=== PATIENT | male | born 1970 | race Two or more races ===

== ENCOUNTER 2021-04-10 02:13 | Emergency (ER) | payer SELFPAY ==
[~2021-04-10] VITALS: Ht 172.7 cm; Wt 80.4 kg
[~2021-04-10 02:13] MED LIST: AMOX1TAB11 PO; DOXY100C3 PO; FERR325T72 PO; METH4TAB2 PO; OXYC1TAB15 PO; PANT40TA77 PO
[2021-04-10] MEDS ORDERED: ONDANSETRON PF 4 MG/2 ML VIAL. IVP ONE (08:15)
[2021-04-10] MEDS ORDERED: IV NORMAL SALINE 1000ML BAG 1,000 ML IV ONE (08:15)
[2021-04-10] MEDS ORDERED: KETOROLAC 30 MG/ML VIAL. IVP ONE (08:15)
[2021-04-10 08:33] LABS: BASO % 0 % (0-3); EOS % 0 % (0-3); HEMATOCRIT 27.8 % (39.0-53.0); HEMOGLOBIN 8.2 g/dL (13.0-17.5); LYMPH # 1.3 x10^3/uL (1.0-4.8); LYMPH % 8 % (24-48); MEAN CORPUSCULAR HEMOGLOBIN 18 pg (25-35); MEAN CORPUSCULAR HGB CONC 29 g/dL (31-37); MEAN CORPUSCULAR VOLUME 60 fL (79-100); MONO # 1.2 x10^3/uL (0.0-1.1); MONO % 7 % (0-9); NEUT # 14.7 x10^3/uL (1.8-7.7); NEUT % 85 % (31-73); PLATELET COUNT 402 x10^3/uL (140-400); RED BLOOD COUNT 4.61 x10^6/uL (4.30-5.70); RED CELL DISTRIBUTION WIDTH 17.8 % (11.5-14.5); WHITE BLOOD COUNT 17.2 x10^3/uL (4.0-11.0)
[2021-04-10 08:35] LABS: BILIRUBIN,URINE NEGATIVE (NEG); COLOR,URINE YELLOW; NITRITE,URINE NEGATIVE (NEG); PH,URINE 6.5 (<5.0-8.0); PROTEIN,URINE NEGATIVE (NEG-TRACE); UROBILINOGEN,URINE 0.2 mg/dL (0.2 mg/dL)
[2021-04-10 08:49] LABS: CALCIUM 10.5 mg/dL (8.5-10.1); CREATININE 1.1 mg/dL (0.7-1.3); GFR 70.3; POTASSIUM 3.9 mmol/L (3.5-5.1)
[2021-04-10 08:53] LABS: AMORPHOUS SEDIMENT,UR PRESENT /HPF; CLARITY,URINE HAZY
[2021-04-10 08:54] LABS: BACTERIA,URINE 0 /HPF (0-FEW); WBC,URINE OCC /HPF (0-4)
[2021-04-10 08:54] LABS: ALBUMIN 3.6 g/dL (3.4-5.0); MAGNESIUM 1.9 mg/dL (1.8-2.4); TOTAL BILIRUBIN 0.4 mg/dL (0.2-1.0); TOTAL PROTEIN 7.1 g/dL (6.4-8.2)
[2021-04-10 09:01] LABS: % BANDS 1 % (0-9); % LYMPHS 12 % (24-48); % MONOS 4 % (0-10); % SEGS 83 % (35-66); PLT ESTIMATE ADEQUATE (ADEQUATE)
[2021-04-10 09:02] LABS: ANISOCYTOSIS SLIGHT
--- NOTE | 2021-04-10 09:02 | RAD ---
CT abdomen pelvis without contrast dated 04/10/2021. COMPARISON: 09/26/2019. CLINICAL INDICATION: Right flank pain. TECHNIQUE: Contiguous axial imaging of the abdomen pelvis performed without the administration of IV or oral con trast. One or more of the following individualized dose reduction techniques were utilized for this examinat ion: 1. Automated exposure control 2. Adjustment of the mA and/or kV according to patient size 3. Use of iterative reconstruction technique. FINDINGS: There is a 5 mm calcific stone at the right UVJ with mild proximal dilation the right ureter and righ t pelvicalyceal system. Mild inflammatory stranding in the perinephric and periureteral fat. There is a 6 mm calcific stone at the lower pole right kidney. Cluster of small calcifications within an uppe r pole calyx on the left with additional smaller stones at the lower pole left kidney. No left ureter al stone or left hydronephrosis. Solid abdominal viscera not well evaluated in the absence of contrast material. No apparent attenuati on abnormality of the liver or spleen. Gallbladder surgically absent. Pancreas is somewhat atrophic. Adrenal glands unremarkable. Unopacified GI tract normal in caliber and contour. No bowel wall thickening. No inflammatory strandi ng in the mesentery. The appendix is normal in caliber. No ascites or lymphadenopathy. Abdominal aort a normal in caliber. Images of pelvis show nondistended urinary bladder. Mild diffuse bladder wall thickening. Prostate gl and normal in size. No free fluid. No pelvic adenopathy. There is a prominent extratesticular cystic focus at the right scrotum that measures about 2.4 cm, li mila epididymal head cyst or spermatocele. Bone window show no acute findings. Mild multilevel spondylosis. Limited images of lung bases show moderate size hiatal hernia. Linear bands of increased density in t he lower lobes, likely scar or atelectasis. IMPRESSION: 1. There is a 5 mm calcific stone at the right UVJ with mild obstructive uropathy. 2. Bilateral nephrolithiasis. 3. Status post cholecystectomy. 4. Normal appendix. 5. Mild diffuse bladder wall thickening, nonspecific. Consider acute or chronic cystitis. 6. Hiatal hernia. Electronically signed by: Wallace Tang MD (04/10/2021 9:00 AM) [id number]
[2021-04-10 09:03] LABS: OVALOCYTES FEW; POIKILOCYTOSIS SLIGHT; POLYCHROMASIA OCCASIONAL; TEAR DROP CELLS OCC
[2021-04-10 09:04] LABS: BIZZARE CELLS OCC
[2021-04-10] MEDS ORDERED: cefTRIAXone IV Push 1 GM VIAL. IVP ONE (10:30)
[2021-04-10] MEDS ORDERED: MORPHINE SULFATE 2 MG/ML INJ. IVP ONE (10:30)
[2021-04-10] MEDS ORDERED: IBUP-1060 PO (10:58)
[2021-04-10] MEDS ORDERED: OXYC1TAB15 PO (10:58)
[2021-04-10] MEDS ORDERED: TAMS0.4C97 PO (10:58)
--- NOTE | 2021-04-10 11:00 | PHYS DOC ---
Past Medical History Past Medical History: Kidney Stone, Other Additional Past Medical Histor: KIDNEY STONES. Past Surgical History: Cholecystectomy Smoking Status: Never Smoker Alcohol Use: Rarely Drug Use: None General Adult EDM: Chief Complaint: RIGHT SIDE FLANK PAIN HPI: HPI: Patient is a 50 year old male who was presented here due to right flank pain started earlier this morning. Patient has history of kidney stone. Patient said the pain is sharp and stabbing nature, radiated to the right groin area. Patient said he was recently admitted here due to COVID-19 infection, patient was discharged home with steroid and doxycycline. Patient denies any chest pain. Review of Systems: Review of Systems: Constitutional: Denies fever or chills. [] Eyes: Denies change in visual acuity. [] HENT: Denies nasal congestion or sore throat. [] Respiratory: Positive for cough, no trouble breathing Cardiovascular: Denies chest pain or edema. [] GI: Positive for right side abdominal pain with nausea vomiting, no diarrhea : Denies dysuria. [] Musculoskeletal: Denies back pain or joint pain. [] Integument: Denies rash. [] Neurologic: Denies headache, focal weakness or sensory changes. [] Endocrine: Denies polyuria or polydipsia. [] Lymphatic: Denies swollen glands. [] Psychiatric: Denies depression or anxiety. [] Heart Score: C/O Chest Pain: N/A Risk Factors: Risk Factors: DM, Current or recent (<one month) smoker, HTN, HLP, family history of CAD, obesity. Risk Scores: Score 0 - 3: 2.5% MACE over next 6 weeks - Discharge Home Score 4 - 6: 20.3% MACE over next 6 weeks - Admit for Clinical Observation Score 7 - 10: 72.7% MACE over next 6 weeks - Early Invasive Strategies Current Medications: Current Medications Medications (Trade) Dose Ordered Sig/Vivien Start Time Stop Time Status Last Admin Dose Admin Ceftriaxone Sodium (Rocephin) 1 gm 1X ONCE 04/10/21 10:30 04/10/21 10:31 DC Ketorolac Tromethamine (Toradol 30mg Vial) 30 mg 1X ONCE 04/10/21 08:15 04/10/21 08:18 DC 04/10/21 08:33 30 MG Morphine Sulfate (Morphine Sulfate) 2 mg 1X ONCE 04/10/21 10:30 04/10/21 10:31 DC Ondansetron HCl (Zofran) 4 mg 1X ONCE 04/10/21 08:15 04/10/21 08:18 DC 04/10/21 08:34 4 MG Sodium Chloride 1,000 ml @ 1,000 mls/hr 1X ONCE 04/10/21 08:15 04/10/21 09:14 DC 04/10/21 08:34 1,000 MLS/HR Allergies: Allergies: Allergies Coded Allergies Type Severity Reaction Last Updated Verified No Known Drug Allergies 09/26/19 No Physical Exam: PE: Constitutional: Well developed, well nourished, no acute distress, non-toxic appearance. [] HENT: Normocephalic, atraumatic, bilateral external ears normal, oropharynx moist, no oral exudates, nose normal. [] Eyes: PERRLA, EOMI, conjunctiva normal, no discharge. [] Neck: Normal range of motion, no tenderness, supple, no stridor. [] Cardiovascular:Heart rate regular rhythm, no murmur [] Lungs & Thorax: Bilateral breath sounds clear to auscultation [ Abdomen: Bowel sounds normal, soft, right side lower quadrant tenderness to palpation, no rebound. Skin: Warm, dry, no erythema, no rash. [] Back: No tenderness, right CVA tenderness to palpation Extremities: No tenderness, no cyanosis, no clubbing, ROM intact, no edema. [] Neurologic: Alert and oriented X 3, normal motor function, normal sensory function, no focal deficits noted. [] Psychologic: Affect normal, judgement normal, mood normal. [] Current Patient Data: Labs: Laboratory Tests Test 04/10/21 08:17 04/10/21 08:20 White Blood Count 17.2 x10^3/uL (4.0-11.0) H Red Blood Count 4.61 x10^6/uL (4.30-5.70) Hemoglobin 8.2 g/dL (13.0-17.5) L Hematocrit 27.8 % (39.0-53.0) L Mean Corpuscular Volume 60 fL (79-100) L Mean Corpuscular Hemoglobin 18 pg (25-35) L Mean Corpuscular Hemoglobin Concent 29 g/dL (31-37) L Red Cell Distribution Width 17.8 % (11.5-14.5) H Platelet Count 402 x10^3/uL (140-400) H Neutrophils (%) (Auto) 85 % (31-73) H Lymphocytes (%) (Auto) 8 % (24-48) L Monocytes (%) (Auto) 7 % (0-9) Eosinophils (%) (Auto) 0 % (0-3) Basophils (%) (Auto) 0 % (0-3) Neutrophils # (Auto) 14.7 x10^3/uL (1.8-7.7) H Lymphocytes # (Auto) 1.3 x10^3/uL (1.0-4.8) Monocytes # (Auto) 1.2 x10^3/uL (0.0-1.1) H Eosinophils # (Auto) 0.0 x10^3/uL (0.0-0.7) Basophils # (Auto) 0.0 x10^3/uL (0.0-0.2) Segmented Neutrophils % 83 % (35-66) H Band Neutrophils % 1 % (0-9) Lymphocytes % 12 % (24-48) L Monocytes % 4 % (0-10) Platelet Estimate Adequate (ADEQUATE) Polychromasia Occasional Poikilocytosis Slight Anisocytosis Slight Tear Drop Cells Occ Ovalocytes Few RBC Morphology Bizarre Forms Occ Sodium Level 141 mmol/L (136-145) Potassium Level 3.9 mmol/L (3.5-5.1) Chloride Level 105 mmol/L (98-107) Carbon Dioxide Level 22 mmol/L (21-32) Anion Gap 14 (6-14) Blood Urea Nitrogen 24 mg/dL (8-26) Creatinine 1.1 mg/dL (0.7-1.3) Estimated GFR (Cockcroft-Gault) 70.3 BUN/Creatinine Ratio 22 (6-20) H Glucose Level 117 mg/dL (70-99) H Calcium Level 10.5 mg/dL (8.5-10.1) H Magnesium Level 1.9 mg/dL (1.8-2.4) Total Bilirubin 0.4 mg/dL (0.2-1.0) Aspartate Amino Transferase (AST) 15 U/L (15-37) Alanine Aminotransferase (ALT) 32 U/L (16-63) Alkaline Phosphatase 98 U/L (46-116) Total Protein 7.1 g/dL (6.4-8.2) Albumin 3.6 g/dL (3.4-5.0) Albumin/Globulin Ratio 1.0 (1.0-1.7) Lipase 77 U/L (73-393) Urine Collection Type Unknown Urine Color Yellow Urine Clarity Hazy Urine pH 6.5 (<5.0-8.0) Urine Specific [place] 1.015 (1.000-1.030) Urine Protein Negative mg/dL (NEG-TRACE) Urine Glucose (UA) Negative mg/dL (NEG) Urine Ketones (Stick) Negative mg/dL (NEG) Urine Blood Large (NEG) Urine Nitrite Negative (NEG) Urine Bilirubin Negative (NEG) Urine Urobilinogen Dipstick 0.2 mg/dL (0.2 mg/dL) Urine Leukocyte Esterase Negative (NEG) Urine RBC 11-20 /HPF (0-2) Urine WBC Occ /HPF (0-4) Urine Amorphous Sediment Present /HPF Urine Bacteria 0 /HPF (0-FEW) Laboratory Tests 04/10/21 08:17 Laboratory Tests 04/10/21 08:17 Vital Signs: Vital Signs Date Time Temp Pulse Resp B/P (MAP) Pulse Ox O2 Delivery O2 Flow Rate FiO2 04/10/21 08:31 98.2 55 15 142/77 (98) 100 Room Air 98.2 EKG: EKG: [] Radiology/Procedures: Radiology/Procedures: [facility] [address] [place] [address] IMAGING REPORT Signed PATIENT: DANY GUZMAN AACCOUNT: [id number] : 1970 LOCATION: ER AGE: 50 SEX: M EXAM STATUS: REG ER ORD. PHYSICIAN: TIA FERGUSON DO REASON: right side flank pain, hx of kidney stone PROCEDURE: CT ABDOMEN PELVIS WO CONTRAST CT abdomen pelvis without contrast dated 04/10/2021. COMPARISON: 09/26/2019. CLINICAL INDICATION: Right flank pain. TECHNIQUE: Contiguous axial imaging of the abdomen pelvis performed without the administration of IV or oral contrast. One or more of the following individualized dose reduction techniques were utilized for this examination: 1. Automated exposure control 2. Adjustment of the mA and/or kV according to patient size 3. Use of iterative reconstruction technique. FINDINGS: There is a 5 mm calcific stone at the right UVJ with mild proximal dilation the right ureter and right pelvicalyceal system. Mild inflammatory stranding in the perinephric and periureteral fat. There is a 6 mm calcific stone at the lower pole right kidney. Cluster of small calcifications within an upper pole calyx on the left with additional smaller stones at the lower pole left kidney. No left ureteral stone or left hydronephrosis. Solid abdominal viscera not well evaluated in the absence of contrast material. No apparent attenuation abnormality of the liver or spleen. Gallbladder surgically absent. Pancreas is somewhat atrophic. Adrenal glands unremarkable. Unopacified GI tract normal in caliber and contour. No bowel wall thickening. No inflammatory stranding in the mesentery. The appendix is normal in caliber. No ascites or lymphadenopathy. Abdominal aorta normal in caliber. Images of pelvis show nondistended urinary bladder. Mild diffuse bladder wall thickening. Prostate gland normal in size. No free fluid. No pelvic adenopathy. There is a prominent extratesticular cystic focus at the right scrotum that measures about 2.4 cm, likely epididymal head cyst or spermatocele. Bone window show no acute findings. Mild multilevel spondylosis. Limited images of lung bases show moderate size hiatal hernia. Linear bands of increased density in the lower lobes, likely scar or atelectasis. IMPRESSION: 1. There is a 5 mm calcific stone at the right UVJ with mild obstructive uropathy. 2. Bilateral nephrolithiasis. 3. Status post cholecystectomy. 4. Normal appendix. 5. Mild diffuse bladder wall thickening, nonspecific. Consider acute or chronic cystitis. 6. Hiatal hernia. Electronically signed by: Wallace Tang MD (04/10/2021 9:00 AM) [id number] DICTATED and SIGNED BY: WALLACE TANG MD DATE: 04/10/21 [id number] Course & Med Decision Making: Course & Med Decision Making Pertinent Labs and Imaging studies reviewed. (See chart for details) Patient is a 50-year-old male who present to ER for evaluation right side flank pain. Patient was found to have kidney stone, which he has history of kidney stone. Patient was given pain medication in ER, he feel much better. Patient will BE dischargeD home, he will need to follow-up with urology outpatient. Beryr Disclaimer: Berry Disclaimer: This electronic medical record was generated, in whole or in part, using a voice recognition dictation system. Departure Departure Impression: Primary Impression: Kidney stone Disposition: HOME / SELF CARE / HOMELESS Condition: IMPROVED Referrals: NO PCP (PCP) JOHN MATA MD Please call this Urologist for follow up next week. Patient Instructions: Kidney Stones Additional Instructions: Thank you for visiting our Emergency Department. We appreciate you trusting us with your care. If any additional problems come up don't hesitate to return to visit us. Please follow up with your primary care provider so they can plan additional care if needed and know about the problem that you had. If symptoms worsen come back to the Emergency Department. Any concerning symptoms that start such as chest pain, shortness of air, weakness or numbness on one side of the body, running high fevers or any other concerning symptoms return to the ER. Scripts Ibuprofen (IBUPROFEN) 800 Mg Tablet 800 MG PO PRN Q6HRS PRN for PAIN, #30 TAB Prov: TIA FERGUSON DO 04/10/21 Oxycodone/Apap 5-325 (PERCOCET 5-325 MG TABLET ) 1 Each Tablet 1 TAB PO PRN QID PRN for SEVERE PAIN 7-10 MDD 4 Tablet(s) for 5 Days, #15 TAB 0 Refills Prov: TIA FERGUSON DO 04/10/21 Tamsulosin Hcl (FLOMAX) 0.4 Mg Cap.er.24h 1 CAP PO DAILY for 10 Days, #10 CAP 11 Refills Prov: TIA FERGUSON DO 04/10/21 TIA FERGUSON DO Apr 10, 2021 11:00
[2021-04-10 11:16] VITALS: BP 124/75
== END 2021-04-10 11:35 | disposition home or self-care (01) ==
LOC: ER 02:13
DX: N20.0 Calculus of kidney (principal); Z87.442 Personal history of urinary calculi; Z90.49 Acquired absence of other specified parts of digestive tract
CPT/HCPCS: 36415; 74176; 80053; 81001; 83690; 83735; 85007; 85025; 96361; 96374; 96375; 99285; J0696; J1885; J2270; J2405; J7030; 96376

== ENCOUNTER → 2021-05-20 | Day surgery (SDC) | payer SELFPAY ==
[~2021-05-20] VITALS: Ht 170.2 cm; Wt 72.0 kg
[~2021-05-20] MED LIST changes: +IBUP-1060 PO; +IV RINGERS,LACTATED 1000ML 1,000 ML IV SCH; +LIDOCAINE 2% PF 5 ML VIAL. ONE; +PROPOFOL 10 MG/ML (20ML) VIAL. IV ONE; +TAMS0.4C97 PO
[2021-05-20 12:25] VITALS: BP 155/91
--- NOTE | 2021-05-20 13:06 | PDOC1 ---
History and Physical Date of Admission Date of Admission DATE: 05/20/21 TIME: 12:57 Identification/Chief Complaint Chief Complaint Iron deficiency anemia. Source Source: Chart review, Patient History of Present Illness History of Present Illness 50 y/o male with PAULINA. Seen here for this when in for COVID last month. No overt bleeding. No symptoms. Prior miya for stones. No PUD, liver, pancreatic history. No prior 'scopes. Past Medical History Endocrine: Diabetes Past Surgical History Past Surgical History: Cholecystectomy Family History Family History: High Cholestrol, Hypertension Social History Smoke: No ALCOHOL: none Drugs: None Current Medications Current Medications Current Medications Ringer's Solution 1,000 ml @ 50 mls/hr Q20H IV Last administered on 05/20/21at 12:29; Start 05/20/21 at 07:00; Stop 05/20/21 at 18:59 Propofol (Diprivan) 200 mg STK-MED ONCE IV ; Start 05/20/21 at 12:52; Stop 05/20/21 at 12:52; Status DC Lidocaine HCl (Lidocaine Pf 2% Vial) 5 ml STK-MED ONCE .ROUTE ; Start 05/20/21 at 12:52; Stop 05/20/21 at 12:53; Status DC Active Scripts Active Ibuprofen 800 Mg Tablet 800 Mg PO PRN Q6HRS PRN Percocet 5-325 Mg Tablet (Oxycodone/Acetaminophen) 1 Each Tablet 1 Tab PO PRN QID PRN MDD 4 Tablet(s) 5 Days Flomax (Tamsulosin Hcl) 0.4 Mg Cap.er.24h 1 Cap PO DAILY 10 Days Doxycycline Hyclate 100 Mg Capsule 1 Cap PO BID Medrol (Methylprednisolone) 4 Mg Tab.ds.pk 1 Pkg PO UD Pantoprazole Sodium (Pantoprazole Sodium) 40 Mg Tablet.dr 40 Mg PO DAILYAC 90 Days Feosol (Ferrous Sulfate) 325 Mg Tablet 325 Mg PO BIDWMEALS 30 Days Percocet 5-325 Mg Tablet (Oxycodone/Acetaminophen) 1 Each Tablet 1 Tab PO PRN Q4HRS PRN 6 Days Amox Tr-K Clv 875-125 Mg Tab (Amoxicillin/Potassium Clav) 1 Each Tablet 1 Tab PO BID 5 Days Allergies Allergies: Coded Allergies: No Known Drug Allergies (Unverified , 05/20/21) ROS Review of System Otherwise negative. Physical Exam General: Alert, Oriented X3, Cooperative, No acute distress HEENT: PERRLA, EOMI Lungs: Clear to auscultation Heart: S1S2, RRR, no gallops, no murmurs Abdomen: Normal bowel sounds, Soft, No tenderness, No hepatosplenomegaly, No masses Rectal Exam: deferred (to time of procedure) Extremities: No cyanosis, No edema Skin: No significant lesion Neuro: Normal speech, Strength at 5/5 X4 ext, Normal tone, Sensation intact, Cranial nerves 3-12 NL, Reflexes 2+ Psych/Mental Status: Mental status NL, Mood NL Vitals Vitals Vital Signs Date Time Temp Pulse Resp B/P (MAP) Pulse Ox O2 Delivery O2 Flow Rate FiO2 05/20/21 12:25 98.0 88 20 97 98.0 VTE Prophylaxis Ordered VTE Prophylaxis Devices: No VTE Pharmacological Prophylaxi: No Assessment/Plan Assessment/Plan IMP: Iron deficiency, cause unclear. PLAN: colonoscopy/EGD. TYRONE SINGH MD May 20, 2021 13:06
[2021-05-20 13:56] VITALS: BP 118/63
--- NOTE | 2021-05-20 14:11 | PDOC4 ---
PROCEDURE Procedure EGD/colonoscopy Indication: PAULINA Meds: per anesthesia Findings: E--normal G--Medium HH--antral biopsies. D--Normal to 3rd portion. Biopsied second. TOMEKA-normal --'Scope advanced to TI. Prep good. Mucosa and TI normal. 3mm polyp, upper rectum, biopsied off. Otherwise normal. Juan. well. Imp: HH Rectal polyp. Rec: Await path. Resume meds, diet. F/u in 2 weeks. TYRONE SINGH MD May 20, 2021 14:11
--- NOTE | 2021-05-21 15:26 | PATHOLOGY ---
[facility] Accession Number: [id number] . 01 Material submitted: . PART A: duodenum - 2ND PORTION DUODENUM BIOPSY PART B: stomach - ANTRUM BIOPSY PART C: rectum - RECTAL POLYP . 01 Clinical history: . ANEMIA/SCREENING EGD/COLONOSCOPY . 02 Diagnosis: A. Duodenal biopsy, second portion of duodenum: - No diagnostic abnormalities. . B. Gastric biopsies, antrum: - Active chronic gastritis, mild to moderate, with Helicobacter organisms identified. . C. Colorectal biopsy, rectal polyp: - Tubular adenoma. . (JPM:kevan; 05/21/2021) [facility] 05/21/2021 1218 Local . 02 Comment: Sections of the second portion of duodenum biopsy reveal duodenal mucosa containing a single mucosal lymphoid aggregate. Where best oriented, the mucosal villi show no sprue-like changes or significant inflammatory changes. . Sections of the gastric antral biopsy show congestion and focally active, mild to moderate chronic inflammation. A properly controlled immunoperoxidase stain for Helicobacter reveals the presence of Helicobacter organisms. . Sections of the rectal polyp biopsy reveal a tubular adenoma showing no high-grade dysplasia or evidence of malignancy. . (JPM:kevan; 05/21/2021) . . . Special stain performed: Immunoperoxidase stain for Helicobacter on B1 . 02 Electronically signed: . Kevin Chacko MD, Pathologist NPI- [id number] . 01 Gross description: . A. The specimen is received in formalin, labeled "surinderrastaRaphael palmer, 2nd portion of duodenum" and consists of 2 mcgregor irregular tissues aggregating 0.4 x 0.4 x 0.1 cm which are submitted in toto in A1. . B. The specimen is received in formalin, labeled "Raphael todd, antrum BX" and consists of 2 mcgregor irregular tissues aggregating 0.7 x 0.3 x 0.1 cm which are submitted in toto in B1. . C. The specimen is received in formalin, labeled "Raphael Solo, rectal polyp" and consists of a mcgregor irregular tissue measuring 0.4 x 0.3 x 0.2 cm which is submitted in toto in C1. ([place]; 05/20/2021) DKA/DKA 05/20/2021 [facility]9 Local . 02 Pathologist provided ICD-10: K29.50, B96.81, D12.8 . 02 CPT . 576348, 953903, [id number], [id number] Specimen Comment: A courtesy copy of this report has been sent to [phone] Specimen Comment: Report sent to Performed at: 01 [facility] [address], [place] [id number] MD Ganesh Valerio MD Phone: [phone] Performed at: 02 [facility] [address] [place], [place] [id number] MD Kevin Chacko MD Phone: [phone]
== END | disposition home or self-care (01) ==
LOC: ENDOS 11:53
PROVIDERS: ATTEND Internal Medicine Gastroenterology
DX: D50.9 Iron deficiency anemia, unspecified (principal); K29.50 Unspecified chronic gastritis without bleeding; D12.8 Benign neoplasm of rectum; B96.81 Helicobacter pylori [H. pylori] as the cause of diseases classified elsewhere; K44.9 Diaphragmatic hernia without obstruction or gangrene; K31.89 Other diseases of stomach and duodenum; K63.89 Other specified diseases of intestine; E11.9 Type 2 diabetes mellitus without complications; Z90.49 Acquired absence of other specified parts of digestive tract; Z98.890 Other specified postprocedural states; Z79.899 Other long term (current) drug therapy; Z72.89 Other problems related to lifestyle; Z82.49 Family history of ischemic heart disease and other diseases of the circulatory system
CPT/HCPCS: 43239; 45380; 88305; 88342; J2704; 45384

== ENCOUNTER 2021-06-28 19:01 | Inpatient (IN) | payer SELFPAY ==
[~2021-06-28] VITALS: Ht 167.6 cm; Wt 180.7 kg
[~2021-06-28 19:01] MED LIST changes: -IV RINGERS,LACTATED 1000ML 1,000 ML IV SCH; -LIDOCAINE 2% PF 5 ML VIAL. ONE; -PROPOFOL 10 MG/ML (20ML) VIAL. IV ONE
--- NOTE | 2021-06-28 22:08 | PHYS DOC ---
Past Medical History Past Medical History: Kidney Stone, Other Additional Past Medical Histor: KIDNEY STONES. Past Surgical History: Cholecystectomy Smoking Status: Never Smoker Alcohol Use: Rarely Drug Use: None General Adult EDM: Chief Complaint: OTHER COMPLAINTS HPI: HPI: Patient is a 50-year-old male who presents to the emergency department for lower abdominal/suprapubic pain with testicular pain that started yesterday. Patient rates his pain 10 out of 10. No treatment prior to arrival. Patient denies any swelling or redness to his testicles, dysuria,fevers, nausea, vomiting, diarrhea, hematuria, blood in stools. Review of Systems: Review of Systems: Constitutional: See HPI GI: See HPI : See HPI Heart Score: C/O Chest Pain: N/A Risk Factors: Risk Factors: DM, Current or recent (<one month) smoker, HTN, HLP, family history of CAD, obesity. Risk Scores: Score 0 - 3: 2.5% MACE over next 6 weeks - Discharge Home Score 4 - 6: 20.3% MACE over next 6 weeks - Admit for Clinical Observation Score 7 - 10: 72.7% MACE over next 6 weeks - Early Invasive Strategies Current Medications: Current Medications Medications (Trade) Dose Ordered Sig/Vivien Start Time Stop Time Status Last Admin Dose Admin Fentanyl Citrate (Fentanyl 2ml Vial) 50 mcg 1X ONCE 06/28/21 22:00 06/28/21 22:01 UNV Sodium Chloride 1,000 ml @ 1,000 mls/hr Q1H 06/28/21 22:00 06/28/21 22:59 UNV Allergies: Allergies: Allergies Coded Allergies Type Severity Reaction Last Updated Verified No Known Drug Allergies 05/20/21 No Physical Exam: PE: Constitutional: Well developed, well nourished, no acute distress, non-toxic appearance. [] HENT: Normocephalic, atraumatic, bilateral external ears normal, oropharynx moist, no oral exudates, nose normal. [] Eyes: PERRL, EOMI, conjunctiva normal, no discharge. [] Neck: Normal range of motion, no tenderness, supple, no stridor. [] Cardiovascular:Heart rate regular rhythm, no murmur [] Lungs & Thorax: Bilateral breath sounds clear to auscultation [] Abdomen: Bowel sounds normal, soft, suprapubic tenderness with palpation and right lower quadrant tenderness with palpation, no rebound tenderness, no abdominal guarding or rigidity, no swelling/warmth/redness noted to testicles, no high riding testicle, negative prehns sign, no masses, no pulsatile masses. [] Skin: Warm, dry, no erythema, no rash. [] Back: no tenderness, normal ROM Extremities: No tenderness, no cyanosis, no clubbing, ROM intact, no edema. [] Neurologic: Alert and oriented X 3, normal motor function, normal sensory fu nction, no focal deficits noted. [] Psychologic: Affect normal, judgement normal, mood normal. [] EKG: EKG: [] Radiology/Procedures: Radiology/Procedures: []REASON: lower abdominal pain, OMNI 300 60 ML IV PROCEDURE: CT ABD PELV W/ IV CONTRST ONLY CT ABDOMEN+PELVIS W History: Lower abdominal pain. Comparison: CT abdomen and pelvis 04/10/2021 Technique: CT abdomen and pelvis with intravenous contrast. Findings: There is a distal left ureterolith measuring 9 mm causing mild left hydronephrosis and hydroureter. Distally the left ureter is decompressed. Mild periureteral fat stranding. There are a few benign left renal cysts. The right kidney is unremarkable. The bladder and prostate are within normal limits. The liver is unremarkable. Status post cholecystectomy. The pancreas, spleen and adrenal glands are normal. There is a moderate hiatal hernia. The small bowel is within normal limits. Mild descending diverticulosis. No pericolonic inflammatory changes. No intra- abdominal free air or free fluid. Mild aortic atherosclerotic calcification. Soft tissues are unremarkable. No acute osseous abnormality. Impression: 1. Distal left ureterolith measuring 9 mm causing mild left hydronephrosis and hydroureter with periureteral inflammatory changes. 2. Moderate hiatal hernia. 3. Mild diverticulosis. No evidence of diverticulitis. ------ Exposure: One or more of the following individualized dose reduction techniques were utilized for this examination: 1. Automated exposure control 2. Adjustment of the mA and/or kV according to patient size 3. Use of iterative reconstruction technique. Electronically signed by: You Colon MD (06/29/2021 12:34 AM) [facility] DICTATED and SIGNED BY: YOU COLON MD DATE: 06/29/2126 Course & Med Decision Making: Course & Med Decision Making Pertinent Labs and Imaging studies reviewed. (See chart for details) Patient resents to the emergency department for lower abdominal pain and testicular pain that started yesterday. Work-up in the emergency department consisted of blood work, urinalysis. Patient was tender in his suprapubic and right lower quadrant therefore CT imaging was performed of his abdomen and pelvis. Patient treated with IV fluids and pain medication. Patient CBC, lipase and CMP are mostly unremarkable, his creatinine was elevated at 1.4. CT scan of his abdomen and pelvis shows a 9 mm stone in the distal left ureter causing hydronephrosis and hydroureter with perinephric stranding. Urinalysis is pending on patient currently. No PCP, concerned for follow up.Patients pain still a 7/10 after pain medication. Discussed with supervising physician. Due to the size of the kidney stone and hydronephrosis and hydroureter, patient will be admitted to the hospital with urology consultation. Patient be treated with antibiotic, Flomax and pain medication. Discussed these findings with patient as well as care plan he is agreeable at this time. Berry Disclaimer: Berry Disclaimer: This electronic medical record was generated, in whole or in part, using a voice recognition dictation system. Departure Departure Impression: Primary Impression: Kidney stone Disposition: ADMITTED INPATIENT Admitting Physician: PHILIPPE Condition: STABLE Referrals: NO PCP (PCP) DEVIN HOPKINS APRN Jun 28, 2021 22:08
[2021-06-28] MEDS ORDERED: CONTRAST GIVEN. MC PRN ×2 (22:30→23:45)
[2021-06-28] MEDS ORDERED: IOHEXOL 300 MG/ML 100ML VIAL. IV ONE (23:00)
[2021-06-28] MEDS ORDERED: fentaNYL PF VIAL 100 MCG/2 ML VIAL IVP ONE (23:00)
[2021-06-28] MEDS ORDERED: IV NORMAL SALINE 1000ML BAG 1,000 ML IV SCH (23:00)
[2021-06-28 23:14] LABS: BASO % 0 % (0-3); EOS % 0 % (0-3); HEMATOCRIT 37.7 % (39.0-53.0); HEMOGLOBIN 12.3 g/dL (13.0-17.5); LYMPH # 1.2 x10^3/uL (1.0-4.8); LYMPH % 18 % (24-48); MEAN CORPUSCULAR HEMOGLOBIN 24 pg (25-35); MEAN CORPUSCULAR HGB CONC 33 g/dL (31-37); MEAN CORPUSCULAR VOLUME 74 fL (79-100); MONO # 0.5 x10^3/uL (0.0-1.1); MONO % 8 % (0-9); NEUT # 4.9 x10^3/uL (1.8-7.7); NEUT % 74 % (31-73); PLATELET COUNT 175 x10^3/uL (140-400); WHITE BLOOD COUNT 6.7 x10^3/uL (4.0-11.0)
[2021-06-28 23:27] LABS: CALCIUM 10.4 mg/dL (8.5-10.1); CREATININE 1.4 mg/dL (0.7-1.3); GFR 53.2; POTASSIUM 3.8 mmol/L (3.5-5.1)
[2021-06-28 23:33] LABS: ALBUMIN 3.7 g/dL (3.4-5.0); ALBUMIN/GLOBULIN RATIO 1.2 (1.0-1.7); TOTAL BILIRUBIN 0.4 mg/dL (0.2-1.0); TOTAL PROTEIN 6.9 g/dL (6.4-8.2)
[2021-06-29] MEDS ORDERED: IOHEXOL 300 MG/ML 100ML VIAL. IV ONE (00:30)
--- NOTE | 2021-06-29 00:37 | RAD ---
CT ABDOMEN+PELVIS W History: Lower abdominal pain. Comparison: CT abdomen and pelvis 04/10/2021 Technique: CT abdomen and pelvis with intravenous contrast. Findings: There is a distal left ureterolith measuring 9 mm causing mild left hydronephrosis and hydroureter. D istally the left ureter is decompressed. Mild periureteral fat stranding. There are a few benign left renal cysts. The right kidney is unremarkable. The bladder and prostate are within normal limits. The liver is unremarkable. Status post cholecystectomy. The pancreas, spleen and adrenal glands are n ormal. There is a moderate hiatal hernia. The small bowel is within normal limits. Mild descending diverticu losis. No pericolonic inflammatory changes. No intra-abdominal free air or free fluid. Mild aortic at herosclerotic calcification. Soft tissues are unremarkable. No acute osseous abnormality. Impression: 1. Distal left ureterolith measuring 9 mm causing mild left hydronephrosis and hydroureter with harpreet ureteral inflammatory changes. 2. Moderate hiatal hernia. 3. Mild diverticulosis. No evidence of diverticulitis. ------ Exposure: One or more of the following individualized dose reduction techniques were utilized for thi s examination: 1. Automated exposure control 2. Adjustment of the mA and/or kV according to patient size 3. Use of iterative reconstruction technique. Electronically signed by: You Colon MD (06/29/2021 12:34 AM) [facility]
[2021-06-29] MEDS ORDERED: MORPHINE SULFATE 2 MG/ML INJ. IVP PRN ×2 (01:00→09:00)
[2021-06-29] MEDS ORDERED: ONDANSETRON PF 4 MG/2 ML VIAL. IVP PRN ×2 (01:00→09:00)
[2021-06-29] MEDS ORDERED: cefTRIAXone IV Push 1 GM VIAL. IVP ONE (01:30)
[2021-06-29] MEDS ORDERED: TAMSULOSIN 0.4 MG CAP.ER.24H. PO ONE (01:30)
[2021-06-29 03:00] VITALS: BP 116/72
[2021-06-29 03:16] LABS: ANISOCYTOSIS MOD; HYPOCHROMIA SLIGHT; MICROCYTOSIS SLIGHT; PLT ESTIMATE ADEQUATE (ADEQUATE)
[2021-06-29 03:17] LABS: OVALOCYTES FEW; POLYCHROMASIA SLIGHT; TARGET CELLS OCC; TEAR DROP CELLS FEW
[2021-06-29 07:00] VITALS: BP 119/73
--- NOTE | 2021-06-29 08:58 | PDOC1 ---
History and Physical Date of Service: DOS: DATE: 06/29/21 TIME: 08:52 Chief Complaint: Chief Complain: Abdominal pain History of Present Illness: HPI: 50-year-old male who presents to the emergency department for lower abdominal/suprapubic pain with testicular pain that started yesterday. Patient rates his pain 10 out of 10. No treatment prior to arrival. Patient denies any swelling or redness to his testicles, dysuria,fevers, nausea, vomiting, diarrhea, hematuria, blood in stools. Past Medical/Surgical History: PMH/PSH: Past Medical History: KIDNEY STONES. Past Surgical History: Cholecystectomy Allergies: Allergies: Coded Allergies: No Known Drug Allergies (Unverified , 05/20/21) Family History: Family History: Reviewed with no relative findings in the chart Social History: Social History: Smoking Status: Never Smoker Alcohol Use: Rarely Drug Use: None Current Medications: Current Medications Current Medications Sodium Chloride 1,000 ml @ 1,000 mls/hr Q1H IV Last administered on 06/28/21at 23:03; Start 06/28/21 at 23:00; Stop 06/28/21 at 23:59; Status DC Fentanyl Citrate (Fentanyl 2ml Vial) 50 mcg 1X ONCE IVP Last administered on 06/28/21at 23:04; Start 06/28/21 at 23:00; Stop 06/28/21 at 23:01; Status DC Iohexol (Omnipaque 300 Mg/ml) 75 ml 1X ONCE IV ; Start 06/28/21 at 23:00; Stop 06/28/21 at 23:01; Status Cancel Info (CONTRAST GIVEN -- Rx MONITORING) 1 each PRN DAILY PRN MC SEE COMMENTS; Start 06/28/21 at 22:30; Stop 06/28/21 at 23:55; Status DC Iohexol (Omnipaque 300 Mg/ml) 60 ml 1X ONCE IV Last administered on 06/29/21at 00:04; Start 06/29/21 at 00:30; Stop 06/29/21 at 00:31; Status DC Info (CONTRAST GIVEN -- Rx MONITORING) 1 each PRN DAILY PRN MC SEE COMMENTS; Start 06/28/21 at 23:45; Stop 06/30/21 at 23:44 Ondansetron HCl (Zofran) 4 mg PRN Q8HRS PRN IVP NAUSEA/VOMITING 1ST CHOICE; Start 06/29/21 at 01:00; Stop 06/30/21 at 00:59 Morphine Sulfate (Morphine Sulfate) 2 mg PRN Q2HR PRN IVP SEVERE PAIN 7-10 Last administered on 06/29/21at 03:58; Start 06/29/21 at 01:00; Stop 06/30/21 at 00:59 Tamsulosin HCl (Flomax) 0.4 mg 1X ONCE PO Last administered on 06/29/21at 03:58; Start 06/29/21 at 01:30; Stop 06/29/21 at 01:31; Status DC Ceftriaxone Sodium (Rocephin) 1 gm 1X ONCE IVP Last administered on 06/29/21at 03:58; Start 06/29/21 at 01:30; Stop 06/29/21 at 01:31; Status DC Active Scripts Active Ibuprofen 800 Mg Tablet 800 Mg PO PRN Q6HRS PRN Flomax (Tamsulosin Hcl) 0.4 Mg Cap.er.24h 1 Cap PO DAILY 10 Days Pantoprazole Sodium (Pantoprazole Sodium) 40 Mg Tablet.dr 40 Mg PO DAILYAC 90 Days ROS: Review of Systems Review of System REVIEW OF SYSTEMS: GENERAL: Denies weakness SKIN: No bruising, hair changes or rashes. EYES: No blurred, double or loss of vision. NOSE AND THROAT: No history of nosebleeds, hoarseness or sore throat. HEART: No history of palpitations, chest pain or shortness of breath on exertion. LUNGS: Denies cough, hemoptysis, wheezing or shortness of breath. GASTROINTESTINAL: Denies changes in appetite, nausea, vomiting, diarrhea or constipation. GENITOURINARY: Positive for testicular pain NEUROLOGIC: Denies history of numbness, tingling, or tremor. PSYCHIATRIC: No history of panic, anxiety or depression. ENDOCRINE: No history of heat or cold intolerance, polyuria or polydipsia. EXTREMITIES: Denies joint pain, pain on walking or stiffness. Physical Exam: Vital Signs: Vital Signs Date Time Temp Pulse Resp B/P (MAP) Pulse Ox O2 Delivery O2 Flow Rate FiO2 06/29/21 08:00 Room Air 06/29/21 07:00 96.8 61 18 119/73 (88) 95 96.8 Physcial Exam: General: Well developed, well nourished, no acute distress, well appearing HEENT: Pupils equally round and reactive to light, EOMI, no discharge, normal conjunctiva Neck: Supple, no nuchal rigidity, no JVD, trachea midline, no tenderness Cardiac: RRR, no murmurs, no gallops, no rubs Chest/Lungs: CTAB, no wheeze, no rhonchi, no crackles Abdomen: soft, non-distended, no guarding, no peritoneal signs, suprapubic tenderness upon palpation Back: No tenderness Extremities: no edema, pulses intact, non-tender,capillary refill <3 sec bilateral upper and lower extremities, Neuro: Alert and oriented x 4, no focal deficits, normal speech Labs: Labs: Laboratory Tests Test 06/28/21 23:01 White Blood Count 6.7 x10^3/uL (4.0-11.0) Red Blood Count 5.10 x10^6/uL (4.30-5.70) Hemoglobin 12.3 g/dL (13.0-17.5) Hematocrit 37.7 % (39.0-53.0) Mean Corpuscular Volume 74 fL (79-100) Mean Corpuscular Hemoglobin 24 pg (25-35) Mean Corpuscular Hemoglobin Concent 33 g/dL (31-37) Red Cell Distribution Width 23.0 % (11.5-14.5) Platelet Count 175 x10^3/uL (140-400) Neutrophils (%) (Auto) 74 % (31-73) Lymphocytes (%) (Auto) 18 % (24-48) Monocytes (%) (Auto) 8 % (0-9) Eosinophils (%) (Auto) 0 % (0-3) Basophils (%) (Auto) 0 % (0-3) Neutrophils # (Auto) 4.9 x10^3/uL (1.8-7.7) Lymphocytes # (Auto) 1.2 x10^3/uL (1.0-4.8) Monocytes # (Auto) 0.5 x10^3/uL (0.0-1.1) Eosinophils # (Auto) 0.0 x10^3/uL (0.0-0.7) Basophils # (Auto) 0.0 x10^3/uL (0.0-0.2) Platelet Estimate Adequate (ADEQUATE) Polychromasia Slight Hypochromasia Slight Anisocytosis Mod Microcytosis Slight Target Cells Occ Tear Drop Cells Few Ovalocytes Few Sodium Level 137 mmol/L (136-145) Potassium Level 3.8 mmol/L (3.5-5.1) Chloride Level 106 mmol/L (98-107) Carbon Dioxide Level 21 mmol/L (21-32) Anion Gap 10 (6-14) Blood Urea Nitrogen 15 mg/dL (8-26) Creatinine 1.4 mg/dL (0.7-1.3) Estimated GFR (Cockcroft-Gault) 53.2 BUN/Creatinine Ratio 11 (6-20) Glucose Level 122 mg/dL (70-99) Calcium Level 10.4 mg/dL (8.5-10.1) Total Bilirubin 0.4 mg/dL (0.2-1.0) Aspartate Amino Transf (AST/SGOT) 16 U/L (15-37) Alanine Aminotransferase (ALT/SGPT) 26 U/L (16-63) Alkaline Phosphatase 117 U/L (46-116) Total Protein 6.9 g/dL (6.4-8.2) Albumin 3.7 g/dL (3.4-5.0) Albumin/Globulin Ratio 1.2 (1.0-1.7) Lipase 63 U/L (73-393) Laboratory Tests Test 06/28/21 23:01 White Blood Count 6.7 x10^3/uL (4.0-11.0) Red Blood Count 5.10 x10^6/uL (4.30-5.70) Hemoglobin 12.3 g/dL (13.0-17.5) Hematocrit 37.7 % (39.0-53.0) Mean Corpuscular Volume 74 fL (79-100) Mean Corpuscular Hemoglobin 24 pg (25-35) Mean Corpuscular Hemoglobin Concent 33 g/dL (31-37) Red Cell Distribution Width 23.0 % (11.5-14.5) Platelet Count 175 x10^3/uL (140-400) Neutrophils (%) (Auto) 74 % (31-73) Lymphocytes (%) (Auto) 18 % (24-48) Monocytes (%) (Auto) 8 % (0-9) Eosinophils (%) (Auto) 0 % (0-3) Basophils (%) (Auto) 0 % (0-3) Neutrophils # (Auto) 4.9 x10^3/uL (1.8-7.7) Lymphocytes # (Auto) 1.2 x10^3/uL (1.0-4.8) Monocytes # (Auto) 0.5 x10^3/uL (0.0-1.1) Eosinophils # (Auto) 0.0 x10^3/uL (0.0-0.7) Basophils # (Auto) 0.0 x10^3/uL (0.0-0.2) Platelet Estimate Adequate (ADEQUATE) Polychromasia Slight Hypochromasia Slight Anisocytosis Mod Microcytosis Slight Target Cells Occ Tear Drop Cells Few Ovalocytes Few Sodium Level 137 mmol/L (136-145) Potassium Level 3.8 mmol/L (3.5-5.1) Chloride Level 106 mmol/L (98-107) Carbon Dioxide Level 21 mmol/L (21-32) Anion Gap 10 (6-14) Blood Urea Nitrogen 15 mg/dL (8-26) Creatinine 1.4 mg/dL (0.7-1.3) Estimated GFR (Cockcroft-Gault) 53.2 BUN/Creatinine Ratio 11 (6-20) Glucose Level 122 mg/dL (70-99) Calcium Level 10.4 mg/dL (8.5-10.1) Total Bilirubin 0.4 mg/dL (0.2-1.0) Aspartate Amino Transf (AST/SGOT) 16 U/L (15-37) Alanine Aminotransferase (ALT/SGPT) 26 U/L (16-63) Alkaline Phosphatase 117 U/L (46-116) Total Protein 6.9 g/dL (6.4-8.2) Albumin 3.7 g/dL (3.4-5.0) Albumin/Globulin Ratio 1.2 (1.0-1.7) Lipase 63 U/L (73-393) Images: Images PROCEDURE: CT ABD PELV W/ IV CONTRST ONLY CT ABDOMEN+PELVIS W History: Lower abdominal pain. Comparison: CT abdomen and pelvis 04/10/2021 Technique: CT abdomen and pelvis with intravenous contrast. Findings: There is a distal left ureterolith measuring 9 mm causing mild left hydronephrosis and hydroureter. Distally the left ureter is decompressed. Mild periureteral fat stranding. There are a few benign left renal cysts. The right kidney is unremarkable. The bladder and prostate are within normal limits. The liver is unremarkable. Status post cholecystectomy. The pancreas, spleen and adrenal glands are normal. There is a moderate hiatal hernia. The small bowel is within normal limits. Mild descending diverticulosis. No pericolonic inflammatory changes. No intra- abdominal free air or free fluid. Mild aortic atherosclerotic calcification. Soft tissues are unremarkable. No acute osseous abnormality. Impression: 1. Distal left ureterolith measuring 9 mm causing mild left hydronephrosis and hydroureter with periureteral inflammatory changes. 2. Moderate hiatal hernia. 3. Mild diverticulosis. No evidence of diverticulitis. Assessment/Plan Assessment/Plan Acute lower abdominal pain secondary to obstructive kidney stone measuring up to 1 cm Left-sided hydronephrosis MARNI likely due to obstructive uropathy Mild hypercalcemia Admit to hospitalist service for further management Consult urology for possible cystoscopy Continue IV fluids Consider to continue tamsulosin IV and p.o. pain control SCD and ambulation for DVT prophylaxis N.p.o. for possible procedure CODE STATUS full Discussed with RN and SW Disposition pending urology evaluation DPOA: Justifications for Admission Other Justification STAN WHITLEY MD Jun 29, 2021 08:58
[2021-06-29] MEDS ORDERED: ZOLPIDEM 5 MG TABLET. PO PRN (09:00)
[2021-06-29] MEDS ORDERED: diphenhydrAMINE 50 MG/ML VIAL IVP PRN (09:00)
[2021-06-29] MEDS ORDERED: DEXTROSE 50% 25 GM / 50ML DISP.SYRIN. IV PRN (09:00)
[2021-06-29] MEDS ORDERED: SENNOSIDES 8.6 MG TABLET PO PRN (09:00)
[2021-06-29] MEDS ORDERED: LORazepam 0.5 MG TABLET PO PRN (09:00)
[2021-06-29] MEDS ORDERED: ACETAMINOPHEN 325 MG TABLET. PO PRN (09:00)
[2021-06-29] MEDS ORDERED: MORPHINE SULFATE 2 MG/ML INJ. IV PRN (09:00)
[2021-06-29] MEDS ORDERED: oxyCODONE/APAP 5/325 1 TAB TABLET PO PRN (09:00)
[2021-06-29] MEDS ORDERED: PROCHLORPERAZINE 10 MG/2 ML VIAL. IV PRN (09:00)
[2021-06-29] MEDS ORDERED: DOCUSATE SODIUM 100 MG CAPSULE. PO PRN (09:00)
[2021-06-29] MEDS ORDERED: ENOXAPARIN 30 MG/0.3 ML SYRINGE. SQ SCH (09:00)
[2021-06-29] MEDS ORDERED: diphenhydrAMINE HCL 25 MG CAPSULE PO PRN ×2 (09:00)
[2021-06-29] MEDS: IV NORMAL SALINE 1000ML BAG 1,000 ML IV SCH ×2 (09:00→17:53)
[2021-06-29 11:00] VITALS: BP 130/84
--- NOTE | 2021-06-29 11:21 | PDOC2 ---
UROLOGY CONSULT DOS: DATE: 06/29/21 TIME: 11:06 Reason for Consult: ureteral calculi Chief Complaint abd pain Interview was conducted using translator/interpreter phone: 50 year old male presented overnight with left sided abdominal/back pain that radiates down to his testicle that started earlier in the day. States he was concerned about another kidney stone so he came to the hospital. Per patient, he was admitted into the hospital in April of this year for kidney stones that he passed spontaneously. Other then that, has no pertinent urology history. Denies fevers, chills, hematuria, dysuria, frequency, urgency. ROS ROS: RESPIRATORY: Shortness of breath denies. Cough denies. UROLOGY: Denies blood in urine. Denies difficulty urinating Current Medications Current Medications Sodium Chloride 1,000 ml @ 1,000 mls/hr Q1H IV Last administered on 06/28/21at 23:03; Start 06/28/21 at 23:00; Stop 06/28/21 at 23:59; Status DC Fentanyl Citrate (Fentanyl 2ml Vial) 50 mcg 1X ONCE IVP Last administered on 06/28/21at 23:04; Start 06/28/21 at 23:00; Stop 06/28/21 at 23:01; Status DC Iohexol (Omnipaque 300 Mg/ml) 75 ml 1X ONCE IV ; Start 06/28/21 at 23:00; Stop 06/28/21 at 23:01; Status Cancel Info (CONTRAST GIVEN -- Rx MONITORING) 1 each PRN DAILY PRN MC SEE COMMENTS; Start 06/28/21 at 22:30; Stop 06/28/21 at 23:55; Status DC Iohexol (Omnipaque 300 Mg/ml) 60 ml 1X ONCE IV Last administered on 06/29/21at 00:04; Start 06/29/21 at 00:30; Stop 06/29/21 at 00:31; Status DC Info (CONTRAST GIVEN -- Rx MONITORING) 1 each PRN DAILY PRN MC SEE COMMENTS; Start 06/28/21 at 23:45; Stop 06/30/21 at 23:44 Ondansetron HCl (Zofran) 4 mg PRN Q8HRS PRN IVP NAUSEA/VOMITING 1ST CHOICE; Start 06/29/21 at 01:00; Stop 06/30/21 at 00:59 Morphine Sulfate (Morphine Sulfate) 2 mg PRN Q2HR PRN IVP SEVERE PAIN 7-10 Last administered on 06/29/21at 03:58; Start 06/29/21 at 01:00; Stop 06/30/21 at 00:59 Tamsulosin HCl (Flomax) 0.4 mg 1X ONCE PO Last administered on 06/29/21at 03:58; Start 06/29/21 at 01:30; Stop 06/29/21 at 01:31; Status DC Ceftriaxone Sodium (Rocephin) 1 gm 1X ONCE IVP Last administered on 06/29/21at 03:58; Start 06/29/21 at 01:30; Stop 06/29/21 at 01:31; Status DC Sennosides (Senna) 17.2 mg PRN BID PRN PO CONSTIPATION; Start 06/29/21 at 09:00 Docusate Sodium (Colace) 100 mg PRN DAILY PRN PO HARD STOOLS; Start 06/29/21 at 09:00 Ondansetron HCl (Zofran) 4 mg PRN Q6HRS PRN IVP NAUSEA/VOMITING, 1st CHOICE; Start 06/29/21 at 09:00 Dextrose (Dextrose 50%-Water Syringe) 12.5 gm PRN Q15MIN PRN IV SEE COMMENTS; Start 06/29/21 at 09:00 Sodium Chloride 1,000 ml @ 100 mls/hr Q10H IV Last administered on 06/29/21at 09:00; Start 06/29/21 at 09:00 Acetaminophen (Tylenol) 650 mg PRN Q4HRS PRN PO TEMP OVER 100.4F OR MILD PAIN; Start 06/29/21 at 09:00 Lorazepam (Ativan) 0.5 mg PRN Q6HRS PRN PO ANXIETY / AGITATION; Start 06/29/21 at 09:00 Lorazepam (Ativan Inj) 0.25 mg PRN Q4HRS PRN IV ANXIETY / AGITATION; Start 06/29/21 at 09:00 Enoxaparin Sodium (Lovenox 30mg Syringe) 30 mg DAILY SQ ; Start 06/29/21 at 09:00; Stop 06/29/21 at 09:11; Status DC Oxycodone/ Acetaminophen (Percocet 5/325) 1 tab PRN Q4HRS PRN PO MILD PAIN, 1ST CHOICE; Start 06/29/21 at 09:00 Morphine Sulfate (Morphine Sulfate) 1 mg PRN Q1HR PRN IV PAIN; Start 06/29/21 at 09:00 Morphine Sulfate (Morphine Sulfate) 2 mg PRN Q2HR PRN IVP SEVERE PAIN 7-10; Start 06/29/21 at 09:00; Stop 06/30/21 at 08:59 Prochlorperazine Edisylate (Compazine) 10 mg PRN Q6HRS PRN IV NAUSEA/VOMITING, 2nd CHOICE; Start 06/29/21 at 09:00 Diphenhydramine HCl (Benadryl) 25 mg PRN Q6HRS PRN IVP ITCHING; Start 06/29/21 at 09:00 Diphenhydramine HCl (Benadryl) 25 mg PRN Q6HRS PRN PO ITCHING; Start 06/29/21 at 09:00 Diphenhydramine HCl (Benadryl) 25 mg PRN QHS PRN PO INSOMNIA, 1st CHOICE; Start 06/29/21 at 09:00 Zolpidem Tartrate (Ambien) 2.5 mg PRN QHS PRN PO INSOMNIA, 2nd CHOICE; Start 06/29/21 at 09:00 Enoxaparin Sodium (Lovenox 60mg Syringe) 60 mg Q12HR SQ Last administered on 06/29/21at 09:20; Start 06/29/21 at 10:00 Active Scripts Active Ibuprofen 800 Mg Tablet 800 Mg PO PRN Q6HRS PRN Flomax (Tamsulosin Hcl) 0.4 Mg Cap.er.24h 1 Cap PO DAILY 10 Days Pantoprazole Sodium (Pantoprazole Sodium) 40 Mg Tablet.dr 40 Mg PO DAILYAC 90 Days Allergies: Coded Allergies: No Known Drug Allergies (Unverified , 05/20/21) Physical Examination PHYSICAL EXAMINATION: GENERAL: Gen. appearance: No acute distress. Mood/affect: Pleasant. HEENT: Head: Normocephalic, atraumatic. Airway Impairment: No. CHEST: Shape and expansion: Normal. Expansion: Normal. SKIN: General: Warm. Color: Good. GENITOURINARY:External genitalia - wnl. Examined testicles without abnormality. NEUROLOGICAL: Mental status: Alert and oriented 3. Language: Normal. BACK: CVAT on left VITALS Vital Signs Date Time Temp Pulse Resp B/P (MAP) Pulse Ox O2 Delivery O2 Flow Rate FiO2 06/29/21 08:00 Room Air 06/29/21 07:00 96.8 61 18 119/73 (88) 95 96.8 Labs Laboratory Tests Test 06/28/21 23:01 White Blood Count 6.7 x10^3/uL (4.0-11.0) Red Blood Count 5.10 x10^6/uL (4.30-5.70) Hemoglobin 12.3 g/dL (13.0-17.5) Hematocrit 37.7 % (39.0-53.0) Mean Corpuscular Volume 74 fL (79-100) Mean Corpuscular Hemoglobin 24 pg (25-35) Mean Corpuscular Hemoglobin Concent 33 g/dL (31-37) Red Cell Distribution Width 23.0 % (11.5-14.5) Platelet Count 175 x10^3/uL (140-400) Neutrophils (%) (Auto) 74 % (31-73) Lymphocytes (%) (Auto) 18 % (24-48) Monocytes (%) (Auto) 8 % (0-9) Eosinophils (%) (Auto) 0 % (0-3) Basophils (%) (Auto) 0 % (0-3) Neutrophils # (Auto) 4.9 x10^3/uL (1.8-7.7) Lymphocytes # (Auto) 1.2 x10^3/uL (1.0-4.8) Monocytes # (Auto) 0.5 x10^3/uL (0.0-1.1) Eosinophils # (Auto) 0.0 x10^3/uL (0.0-0.7) Basophils # (Auto) 0.0 x10^3/uL (0.0-0.2) Platelet Estimate Adequate (ADEQUATE) Polychromasia Slight Hypochromasia Slight Anisocytosis Mod Microcytosis Slight Target Cells Occ Tear Drop Cells Few Ovalocytes Few Sodium Level 137 mmol/L (136-145) Potassium Level 3.8 mmol/L (3.5-5.1) Chloride Level 106 mmol/L (98-107) Carbon Dioxide Level 21 mmol/L (21-32) Anion Gap 10 (6-14) Blood Urea Nitrogen 15 mg/dL (8-26) Creatinine 1.4 mg/dL (0.7-1.3) Estimated GFR (Cockcroft-Gault) 53.2 BUN/Creatinine Ratio 11 (6-20) Glucose Level 122 mg/dL (70-99) Calcium Level 10.4 mg/dL (8.5-10.1) Total Bilirubin 0.4 mg/dL (0.2-1.0) Aspartate Amino Transf (AST/SGOT) 16 U/L (15-37) Alanine Aminotransferase (ALT/SGPT) 26 U/L (16-63) Alkaline Phosphatase 117 U/L (46-116) Total Protein 6.9 g/dL (6.4-8.2) Albumin 3.7 g/dL (3.4-5.0) Albumin/Globulin Ratio 1.2 (1.0-1.7) Lipase 63 U/L (73-393) Laboratory Tests Test 06/28/21 23:01 White Blood Count 6.7 x10^3/uL (4.0-11.0) Red Blood Count 5.10 x10^6/uL (4.30-5.70) Hemoglobin 12.3 g/dL (13.0-17.5) Hematocrit 37.7 % (39.0-53.0) Mean Corpuscular Volume 74 fL (79-100) Mean Corpuscular Hemoglobin 24 pg (25-35) Mean Corpuscular Hemoglobin Concent 33 g/dL (31-37) Red Cell Distribution Width 23.0 % (11.5-14.5) Platelet Count 175 x10^3/uL (140-400) Neutrophils (%) (Auto) 74 % (31-73) Lymphocytes (%) (Auto) 18 % (24-48) Monocytes (%) (Auto) 8 % (0-9) Eosinophils (%) (Auto) 0 % (0-3) Basophils (%) (Auto) 0 % (0-3) Neutrophils # (Auto) 4.9 x10^3/uL (1.8-7.7) Lymphocytes # (Auto) 1.2 x10^3/uL (1.0-4.8) Monocytes # (Auto) 0.5 x10^3/uL (0.0-1.1) Eosinophils # (Auto) 0.0 x10^3/uL (0.0-0.7) Basophils # (Auto) 0.0 x10^3/uL (0.0-0.2) Platelet Estimate Adequate (ADEQUATE) Polychromasia Slight Hypochromasia Slight Anisocytosis Mod Microcytosis Slight Target Cells Occ Tear Drop Cells Few Ovalocytes Few Sodium Level 137 mmol/L (136-145) Potassium Level 3.8 mmol/L (3.5-5.1) Chloride Level 106 mmol/L (98-107) Carbon Dioxide Level 21 mmol/L (21-32) Anion Gap 10 (6-14) Blood Urea Nitrogen 15 mg/dL (8-26) Creatinine 1.4 mg/dL (0.7-1.3) Estimated GFR (Cockcroft-Gault) 53.2 BUN/Creatinine Ratio 11 (6-20) Glucose Level 122 mg/dL (70-99) Calcium Level 10.4 mg/dL (8.5-10.1) Total Bilirubin 0.4 mg/dL (0.2-1.0) Aspartate Amino Transf (AST/SGOT) 16 U/L (15-37) Alanine Aminotransferase (ALT/SGPT) 26 U/L (16-63) Alkaline Phosphatase 117 U/L (46-116) Total Protein 6.9 g/dL (6.4-8.2) Albumin 3.7 g/dL (3.4-5.0) Albumin/Globulin Ratio 1.2 (1.0-1.7) Lipase 63 U/L (73-393) Assessment/Plan ---9 mm distal ureteral stone Causing mild hydronephrosis and hydroureter. UA pending. Vital signs stable. No signs of infection. Cr slightly elevated at 1.4. IV fluids. Tamsulosin daily. Strain urine. Discussed stone management options including observation, ESWL, and ureteros copy. Patient opted for ureteroscopy at this time. Discussed risks with patient including but not limited to bleeding, infection, injury to organs, and risks of anesthesia. Patient agreeable. Patient will proceed to OR on 06/[address] Pascual for cystoscopy, left ureteroscopy with laser of stone and possible ureteral stent placement. NPO at midnight. Ancef preop. D/w Dr. Pascual. DELVIS PAVON APRN Jun 29, 2021 11:21
[2021-06-29 11:37] LABS: BACTERIA,URINE 0 /HPF (0-FEW); RBC,URINE 20-40 /HPF (0-2); WBC,URINE 0 /HPF (0-4)
[2021-06-29] MEDS: TAMSULOSIN 0.4 MG CAP.ER.24H. PO SCH (11:39)
[2021-06-29 15:00] VITALS: BP 114/79
[2021-06-29 19:46] VITALS: BP 122/78
[2021-06-29 23:34] VITALS: BP 119/78
[2021-06-30] VITALS (9 sets, daily range): BP systolic 116–134; BP diastolic 69–88
[2021-06-30] MEDS: IV NORMAL SALINE 1000ML BAG 1,000 ML IV SCH ×2 (04:06→10:25)
[2021-06-30] MEDS ORDERED: ONDANSETRON PF 4 MG/2 ML VIAL. ONE (07:39)
[2021-06-30] MEDS ORDERED: PROPOFOL 10 MG/ML (20ML) VIAL. IV ONE (07:39)
[2021-06-30] MEDS ORDERED: PHENYLEPHRINE in 0.9% NACL PF 1 MG/10 ML SYRINGE. IV ONE (07:39)
[2021-06-30] MEDS ORDERED: LIDOCAINE 2% PF 5 ML VIAL. ONE (07:39)
[2021-06-30] MEDS ORDERED: DEXAMETHASONE SOD PHOS 4 MG/ML VIAL ONE (07:39)
[2021-06-30] MEDS ORDERED: SUCCINYLCHOLINE 200 MG/10 ML VIAL. ONE (07:40)
[2021-06-30] MEDS ORDERED: fentaNYL PF VIAL 100 MCG/2 ML VIAL ONE (07:41)
[2021-06-30] MEDS ORDERED: IOHEXOL 300 MG/ML 50 ML VIAL. ONE (08:05)
[2021-06-30] MEDS ORDERED: ceFAZolin SODIUM IV Push 1 GM VIAL. IVP ONE (08:07)
[2021-06-30] MEDS ORDERED: ePHEDrine PF IN SALINE 50 MG/10 ML SYRINGE. IV ONE (08:29)
[2021-06-30] MEDS ORDERED: LIDOCAINE 2% JELLY 6ML IN APPLICATOR. ONE (08:35)
[2021-06-30 08:41] LABS: BASO % 0 % (0-3); EOS # 0.1 x10^3/uL (0.0-0.7); EOS % 2 % (0-3); HEMATOCRIT 36.9 % (39.0-53.0); LYMPH # 1.7 x10^3/uL (1.0-4.8); LYMPH % 45 % (24-48); MEAN CORPUSCULAR HEMOGLOBIN 24 pg (25-35); MEAN CORPUSCULAR HGB CONC 32 g/dL (31-37); MEAN CORPUSCULAR VOLUME 75 fL (79-100); MONO # 0.3 x10^3/uL (0.0-1.1); MONO % 9 % (0-9); NEUT # 1.6 x10^3/uL (1.8-7.7); NEUT % 43 % (31-73); PLATELET COUNT 183 x10^3/uL (140-400); RED BLOOD COUNT 4.95 x10^6/uL (4.30-5.70); RED CELL DISTRIBUTION WIDTH 23.1 % (11.5-14.5); WHITE BLOOD COUNT 3.7 x10^3/uL (4.0-11.0)
[2021-06-30 08:53] LABS: ALBUMIN 3.3 g/dL (3.4-5.0); ALBUMIN/GLOBULIN RATIO 1.1 (1.0-1.7); CALCIUM 10.2 mg/dL (8.5-10.1); CREATININE 1.1 mg/dL (0.7-1.3); GFR 70.3; POTASSIUM 3.8 mmol/L (3.5-5.1); TOTAL BILIRUBIN 0.2 mg/dL (0.2-1.0); TOTAL PROTEIN 6.4 g/dL (6.4-8.2)
[2021-06-30] MEDS ORDERED: SEVOFLURANE 31 TO 60 MINUTES. IH ONE (08:53)
[2021-06-30] MEDS ORDERED: KETOROLAC 30 MG/ML VIAL. ONE (08:57)
--- NOTE | 2021-06-30 09:07 | PDOC4 ---
OPERATIVE NOTE Date: Date: Jun 30, 2021 Pre-Op Diagnosis: Left ureteral stone Post-Op Diagnosis: Left ureteral stone Procedure Performed: Left ureteroscopy Laser lithotripsy Left retrograde pyelogram Surgeon: Mayito Pascual MD Anesthesia Type: General Blood Loss: 0cc Specimans Obtained: Left ureteral stones Findings: 9mm distal stone Complications: none Operative Note: The patient was taken to the OR on the above date after informed consent. General anesthesia was administered and the patient placed in the dorsal lithotomy position. After the patient was prepped and draped cystoscopy was performed with a rigid cystoscope. This revealed no abnormalities. The left ureter was cannulated with a safety wire and the semi rigid ureteroscopy revealed a stone in the ureter. The stone was fragmented with a 365 nm laser fiber and the larger fragments were removed with the zero tipped nitinol basket. The remaining fragments were small enough to pass I elected not to place a stent as the ureter was widely dilated and no dilation was needed to introduce instruments The bladder was drained and the patient tolerated the procedure well then taken to the recover in stable condition after being awoken from anesthesia. Plan: Return to the floor. FU in 2-3 months for renal US NATALIA PASCUAL MD Jun 30, 2021 09:07
[2021-06-30] MEDS: TAMSULOSIN 0.4 MG CAP.ER.24H. PO SCH (10:27)
[2021-06-30 10:37] LABS: MAGNESIUM 1.7 mg/dL (1.8-2.4); PHOSPHORUS 2.7 mg/dL (2.6-4.7)
--- NOTE | 2021-06-30 11:09 | DISCH ---
DISCHARGE INSTRUCTIONS Condition on Discharge Condition on Discharge: Stable Activity After Discharge Activity Instructions for Disc: Activity as tolerated Exercise Instruction after Dis: Progress as tolerated Weight Bearing Status after Di: As tolerated Diet after Discharge Diet after Discharge: Cardiac, Regular Diet Texture: Regular Swallowing Supervision: None needed Wound Incision Care Wound/Incision Care: No wound care needed Wound Care Equipment: Dressings Follow-Up Follow up with: PCP within 2 weeks of discharge Follow Up With: Urology as scheduled or as needed Treatment/Equipment after DC Adaptive Equipment Issued: None STAN WHITLEY MD Jun 30, 2021 11:09
[2021-06-30] MEDS ORDERED: TAMS0.4C97 PO (15:47)
--- NOTE | 2021-06-30 17:05 | NUR ---
Discharge Note: DANY GUZMAN Discharge instructions and discharge home medications reviewed with Patient and a copy given. All questions have been answered and understanding verbalized. The following instructions and handouts were given: Medications, worsening symptoms, activity, and follow up information. Discontinued lines and drains: IV discontinued from LFA, and skin intact. Patient discharged to home with self care via private transportation escorted by son.
--- NOTE | 2021-07-02 09:09 | PATHOLOGY ---
[facility] Accession Number: [id number] . 01 Material submitted: . ureter - STONE LEFT URETER. Modifiers: left . 01 Clinical history: . CYSTO W/ URETEROSCOPY W/ STONE LASER ABLATION . 02 Diagnosis: Left ureter calculi: - Consistent with calculi. - The specimen is sent out for further processing. - Report pending outside analysis with results to follow in an addendum. [facility] 07/01/2021 1703 Local . 02 Electronically signed: . Kevin Chacko MD, Pathologist NPI- [id number] . 01 Gross description: . The specimen is received without fixative, labeled "Saqib Solo, stone". The site is verified on the problem specimen form as, "left ureter". Received are multiple, mcgregor-valenzuela, friable, granular calculous fragments, ranging in size from <0.1-0.3 cm, in greatest dimension. The specimen is forwarded to sendouts for further processing. (JGG; 07/01/2021) . . . . . [facility] 07/02/2021 0834 Local . 02 Pathologist provided ICD-10: N20.1 . 02 CPT . 946645 Specimen Comment: A courtesy copy of this report has been sent to [phone], [phone] Specimen Comment: [id number] Specimen Comment: Report sent to / DR LERMA Specimen Comment: A duplicate report has been generated due to demographic updates. Performed at: [facility] [address], [place], [place] [id number] MD Ganesh Valerio MD Phone: [phone] [facility]formed at: [facility] [address], [place] [id number] MD Kevin Chacko MD Phone: [phone]
== END 2021-06-30 15:55 | disposition home or self-care (01) | DRG 694 ==
LOC: ER 19:01 → 5 NORTH 06-29 00:57
PROVIDERS: ADMIT Internal Medicine; ATTEND Internal Medicine
PROC: 0TC78ZZ Extirpation of Matter from Left Ureter, Via Natural or Artificial Opening Endoscopic (ICD-10-PCS; 2021-06-30)
PROC: BT1F1ZZ Fluoroscopy of Left Kidney, Ureter and Bladder using Low Osmolar Contrast (ICD-10-PCS; principal; 2021-06-30 08:00)
DX: N13.2 Hydronephrosis with renal and ureteral calculous obstruction (principal); E83.52 Hypercalcemia; N17.9 Acute kidney failure, unspecified; I70.0 Atherosclerosis of aorta; K44.9 Diaphragmatic hernia without obstruction or gangrene; K57.30 Diverticulosis of large intestine without perforation or abscess without bleeding; N28.1 Cyst of kidney, acquired; N50.819 Testicular pain, unspecified; Z87.442 Personal history of urinary calculi; Z90.49 Acquired absence of other specified parts of digestive tract; F41.9 Anxiety disorder, unspecified; K59.00 Constipation, unspecified
CPT/HCPCS: 36415; 74177; 76000; 80053; 81001; 83690; 83735; 84100; 85025; 96374; A4657; A4911; A4930; C1769; J0330; J0690; J0696; J1100; J1650; J1885; J2270; J2370; J2405; J2704; J3010; J7030; Q9967; 99285-25; G0378